=== PATIENT | male | born 1950 | race Caucasian/White ===

== ENCOUNTER 2018-03-17 11:02 | Emergency (ER) | payer BC, OTHER ==
[2018-03-17] MEDS ORDERED: CEFTRIAXONE 250 MG/VIAL ONE (12:07)
[2018-03-17] MEDS ORDERED: LIDOCAINE 1% MPF 2 ML AMPULE ONE (12:07)
[2018-03-17] MEDS ORDERED: AZITHROMYCIN 250 MG TAB ONE (12:07)
[2018-03-17 12:17] LABS: Urine Bacteria <20 /HPF (NONE SEEN); Urine Culture Reflex Order REFLEXED; Urine RBC <5 /HPF (NONE SEEN)
--- NOTE | 2018-03-17 12:41 | EDPHYS ---
Physician Documentation [facility] Name: Gunnar Canada Age: 67 yrs Sex: Male : 1950 Arrival Date: 03/17/2018 Time: 11:08 Bed 25 Private MD: ED Physician Damon Haley HPI: 03/17 12:00 This 67 yrs old Male presents to ER via Ambulatory with complaints of Rash. pm1 12:00 The patient's rash thought to be caused by Had unprotected intercourse about 1 week ago pm1 with a new girlfriend. Noticed a rash to the head of his penis yesterday. Patient is uncircumcised. Denies any burning with urination or penile discharge. The rash is located on the head of penis. The rash can be described as patchy, red. Onset: The symptoms/episode began/occurred yesterday. Associated signs and symptoms: Pertinent negatives: burning sensation, difficulty breathing, fever, swelling of lips, swelling of throat, swelling of tongue. Severity of symptoms: in the emergency department the symptoms are unchanged. The patient has not experienced similar symptoms in the past. The patient has not recently seen a physician. Historical: - Allergies: 11:22 No Known Allergies; aa5 - PMHx: 11:22 Hypertension; aa5 - PSHx: 11:22 None; aa5 - Immunization history:: Flu vaccine is not up to date. - Social history:: Smoking status: Patient/guardian denies using tobacco, the patient reports quitting approximately 10 years ago. - Ebola Screening: : No symptoms or risks identified at this time. ROS: 12:00 Constitutional: Negative for fever, chills, and weight loss, Eyes: Negative for injury, pm1 pain, redness, and discharge, ENT: Negative for injury, pain, and discharge, Neck: Negative for injury, pain, and swelling, Cardiovascular: Negative for chest pain, palpitations, and edema, Respiratory: Negative for shortness of breath, cough, wheezing, and pleuritic chest pain, Abdomen/GI: Negative for abdominal pain, nausea, vomiting, diarrhea, and constipation, Back: Negative for injury and pain, : Negative for injury, bleeding, discharge, and swelling, MS/Extremity: Negative for injury and deformity. 12:00 Neuro: Negative for headache, weakness, numbness, tingling, and seizure. 12:00 Skin: Positive for rash, of the head of penis. Exam: 12:00 Constitutional: This is a well developed, well nourished patient who is awake, alert, pm1 and in no acute distress. Head/Face: Normocephalic, atraumatic. Eyes: Pupils equal round and reactive to light, extra-ocular motions intact. Lids and lashes normal. Conjunctiva and sclera are non-icteric and not injected. Cornea within normal limits. Periorbital areas with no swelling, redness, or edema. ENT: Nares patent. No nasal discharge, no septal abnormalities noted. Tympanic membranes are normal and external auditory canals are clear. Oropharynx with no redness, swelling, or masses, exudates, or evidence of obstruction, uvula midline. Mucous membranes moist. Neck: Trachea midline, no thyromegaly or masses palpated, and no cervical lymphadenopathy. Supple, full range of motion without nuchal rigidity, or vertebral point tenderness. No Meningismus. Chest/axilla: Normal chest wall appearance and motion. Nontender with no deformity. No lesions are appreciated. Cardiovascular: Regular rate and rhythm with a normal S1 and S2. No gallops, murmurs, or rubs. Normal PMI, no JVD. No pulse deficits. Respiratory: Lungs have equal breath sounds bilaterally, clear to auscultation and percussion. No rales, rhonchi or wheezes noted. No increased work of breathing, no retractions or nasal flaring. Abdomen/GI: Soft, non-tender, with normal bowel sounds. No distension or tympany. No guarding or rebound. No evidence of tenderness throughout. Back: No spinal tenderness. No costovertebral tenderness. Full range of motion. Skin: Warm, dry with normal turgor. Normal color with no rashes, no lesions, and no evidence of cellulitis. MS/ Extremity: Pulses equal, no cyanosis. Neurovascular intact. Full, normal range of motion. Neuro: Awake and alert, GCS 15, oriented to person, place, time, and situation. Cranial nerves II-XII grossly intact. Motor strength 5/5 in all extremities. Sensory grossly intact. Cerebellar exam normal. Normal gait. 12:00 : Male external genitalia: penile discharge, is absent, Rash consistent with balanitis . Vital Signs: 11:22 BP 152 / 89; Pulse 71; Resp 18 S; Temp 99.0(TE); Pulse Ox 97% on R/A; Weight 81.19 kg aa5 (R); Height 5 ft. 10 in. (177.80 cm) (R); Pain 0/10; 11:22 Body Mass Index 25.68 (81.19 kg, 177.80 cm) aa5 MDM: 11:26 Patient medically screened. [facility] 11:41 Data reviewed: vital signs. Data interpreted: Pulse oximetry: on room air is 97 %. pm1 Interpretation: normal. 12:39 Counseling: I had a detailed discussion with the patient and/or guardian regarding: the pm1 historical points, exam findings, and any diagnostic results supporting the discharge/admit diagnosis. 03/17 11:40 Order name: Urine Microscopic Only; Complete Time: 12:39 pm1 03/17 11:47 Order name: Urine Dipstick--Ancillary (enter results) ss 03/17 11:40 Order name: Urine Dipstick-Ancillary (obtain specimen); Complete Time: 11:55 pm1 03/17 12:18 Order name: Urine Culture EDKY Administered Medications: 12:03 Drug: Rocephin (cefTRIAXone) 250 mg Route: IM; Site: left deltoid; iw 12:04 Drug: Zithromax 1 grams Route: PO; iw Disposition: 03/18 06:29 Co-signature as Attending Physician, Damon Haley MD I agree with the assessment and [facility] plan of care. Disposition: 03/17/18 12:41 Discharged to Home. Impression: Balanitis. - Condition is Stable. - Discharge Instructions: Balanitis. - Prescriptions for Clotrimazole 1 % Topical Cream - Apply to affected area 1 application by TOPICAL route every 12 hours for 10 days; 15 gram. - Medication Reconciliation Form, Thank You Letter, Antibiotic Education form. - Follow up: Emergency Department; When: As needed; Reason: Worsening of condition. Follow up: Private Physician; When: 2 - 3 days; Reason: Recheck today's complaints, Continuance of care, Re-evaluation by your physician. - Problem is new. - Symptoms have improved. Signatures: Dispatcher [employer] EDMS Damon Haley MD MD cha Williams, Irene RN SHER Humaira Valdes RN RN aa5 [place] PHYSICAL THERAPY SUPERVISOR PHYSICAL THERAPY SUPERVISOR pm1 Corrections: (The following items were deleted from the chart) 03/17 12:57 12:41 03/17/2018 12:41 Discharged to Home. Impression: Balanitis. Condition is Stable. iw Forms are Medication Reconciliation Form, Thank You Letter, Antibiotic Education, Prescription Opioid Use. Follow up: Emergency Department; When: As needed; Reason: Worsening of condition. Follow up: Private Physician; When: 2 - 3 days; Reason: Recheck today's complaints, Continuance of care, Re-evaluation by your physician. Problem is new. Symptoms have improved. pm1
--- NOTE | 2018-03-17 12:41 | ER ---
Nurse's Notes [facility] Name: Gunnar Canada Age: 67 yrs Sex: Male : 1950 Arrival Date: 03/17/2018 Time: 11:08 Bed 25 Private MD: Diagnosis: Balanitis Presentation: 03/17 11:21 Presenting complaint: Patient states: "I have a rash and itching to my private area aa5 that showed up on Saturday". Transition of care: patient was not received from another setting of care. Onset of symptoms was March 2018. Risk Assessment: Do you want to hurt yourself or someone else? Patient reports no desire to harm self or others. Care prior to arrival: None. 11:21 Method Of Arrival: Ambulatory aa5 11:21 Acuity: RENEE 5 aa5 11:22 Initial Sepsis Screen: Does the patient meet any 2 criteria? No. Patient's initial aa5 sepsis screen is negative. Does the patient have a suspected source of infection? No. Patient's initial sepsis screen is negative. Triage Assessment: 12:00 General: Appears in no apparent distress. iw 12:56 General: Behavior is calm. iw Historical: - Allergies: 11:22 No Known Allergies; aa5 - PMHx: 11:22 Hypertension; aa5 - PSHx: 11:22 None; aa5 - Immunization history:: Flu vaccine is not up to date. - Social history:: Smoking status: Patient/guardian denies using tobacco, the patient reports quitting approximately 10 years ago. - Ebola Screening: : No symptoms or risks identified at this time. Screenin:50 Abuse screen: Denies threats or abuse. Denies injuries from another. Nutritional iw screening: No deficits noted. Tuberculosis screening: No symptoms or risk factors identified. Fall Risk None identified. Assessment: 12:00 General: Appears in no apparent distress. comfortable, Behavior is calm, cooperative. iw Pain: Complains of pain in head of penis and shaft of penis. Neuro: Level of Consciousness is awake, alert, obeys commands, Oriented to person, place, time, situation. Cardiovascular: Patient's skin is warm and dry. Respiratory: Respiratory effort is even, unlabored, Respiratory pattern is regular. Derm: Skin is intact, is fragile. Musculoskeletal: Range of motion: intact in all extremities. Vital Signs: 11:22 BP 152 / 89; Pulse 71; Resp 18 S; Temp 99.0(TE); Pulse Ox 97% on R/A; Weight 81.19 kg aa5 (R); Height 5 ft. 10 in. (177.80 cm) (R); Pain 0/10; 11:22 Body Mass Index 25.68 (81.19 kg, 177.80 cm) aa5 ED Course: 11:08 Patient arrived in ED. mr 11:22 Triage completed. aa5 11:22 Arm band placed on. aa5 11:25 [place] NP is PHCP. pm1 11:25 Damon Haley MD is Attending Physician. pm1 11:42 Manda Santiago RN is Primary Nurse. iw 12:00 Patient has correct armband on for positive identification. iw 12:56 No provider procedures requiring assistance completed. Patient did not have IV access iw during this emergency room visit. Administered Medications: 12:03 Drug: Rocephin (cefTRIAXone) 250 mg Route: IM; Site: left deltoid; iw 12:04 Drug: Zithromax 1 grams Route: PO; iw Outcome: 12:41 Discharge ordered by . pm1 12:56 Discharged to home ambulatory. iw 12:56 Condition: good 12:56 Discharge instructions given to patient, Instructed on discharge instructions, follow up and referral plans. medication usage, Demonstrated understanding of instructions, follow-up care, medications, Prescriptions given X 1. 12:57 Patient left the ED. iw Signatures: Bella Meeks mr Manda Santiago RN RN iw Humaira Valdes RN RN aa [place] NP [facility] HAND pm1
[2018-03-17 13:00] LABS: Urine Blood TRACE (NEG); Urine Glucose NEGATIVE (NEG); Urine Protein NEGATIVE (NEG); Urine Specific Gravity 1.025 (1.005-1.030)
[2018-03-17 13:31] VITALS: BP 152/89; TEMP 99; O2SAT 97
== END 2018-03-17 12:57 | disposition home or self-care (01) ==
LOC: ER 11:02
DX: N48.1 Balanitis (principal); I10 Essential (primary) hypertension
CPT/HCPCS: 81003; 81015; 87086; 87088; 96372; 99283; J0696; J2001

== ENCOUNTER 2018-08-07 10:34 | Emergency (ER) | payer BC, OTHER ==
[2018-08-07 12:24] LABS: Absolute Lymphocytes (CBC) 0.5 K/uL (0.7-4.9); Absolute Neutrophil 8.3 K/uL (1.8-8.0); Basophils % 0.2 % (0-1.3); Eosinophils % 0.2 % (0-4.4); Lymphocytes % 5.3 % (15.3-44.8); MPV 7.7 fL (7.6-11.3); Monocytes % 9.9 % (3.3-12.3); RBC Red Blood Cell Count 3.85 M/uL (4.33-5.43)
--- NOTE | 2018-08-07 12:36 | RAD REPORT ---
EXAM DESCRIPTION: RAD - Hand Right 3 View - 08/07/2018 12:22 pm CLINICAL HISTORY: hand swelling COMPARISON: No comparisons FINDINGS: Prominent soft tissue swelling is seen along the dorsum of the hand. Subluxation/dislocati on is suspected at the second metacarpal phalangeal joint. No definitive fracture appreciated. Wideni ng of the scapholunate interval seen in the wrist suggesting tear of the scapholunate ligament.
[2018-08-07 12:44] LABS: Albumin 3.8 g/dL (3.4-5.0); Bilirubin Total 1.3 mg/dL (0.2-1.0); Potassium 4.4 mmol/L (3.5-5.1); Protein, Total 7.7 g/dL (6.4-8.2)
[2018-08-07] MEDS ORDERED: CLINDAMYCIN 900MG/D5W 900 MG/50 ML IVPB IV ONE (13:29)
--- NOTE | 2018-08-07 13:45 | EDPHYS ---
Physician Documentation [facility] Name: Gunnar Canada Age: 67 yrs Sex: Male : 1950 Arrival Date: 08/07/2018 Time: 10:38 Bed 12 Private MD: Urban Delaney ED Physician Randall Willis HPI: 08/07 11:12 This 67 yrs old Male presents to ER via Ambulatory with complaints of Hand jmm Swelling. 11:12 The patient or guardian reports injury, pain, swelling. Onset: The symptoms/episode jmm began/occurred acutely, 3 day(s) ago. Modifying factors: The symptoms are alleviated by nothing, the symptoms are aggravated by nothing. This is a 67 year old male with a history of htn that presents to the ED with complaints of right hand swelling. 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 Patient states swelling began Saturday with swelling to the knuckles. Patients states he scraped his hand in this area. Patient states he is UTD on tetanus immunization. . Historical: - Allergies: 11:03 NSAIDS (Non-Steroidal Anti-Inflamma; hj - PMHx: 11:03 Hypertension; hj - PSHx: 11:03 None; hj - Immunization history:: Adult Immunizations up to date. - Social history:: Smoking status: Patient uses tobacco products, Patient/guardian denies using alcohol. - Ebola Screening: : Patient negative for fever greater than or equal to 101.5 degrees Fahrenheit, and additional compatible Ebola Virus Disease symptoms Patient denies exposure to infectious person Patient denies travel to an Ebola-affected area in the 21 days before illness onset. ROS: 11:12 Constitutional: Negative for fever, chills, and weight loss, Cardiovascular: Negative jmm for chest pain, palpitations, and edema, Respiratory: Negative for shortness of breath, cough, wheezing, and pleuritic chest pain. 11:12 MS/extremity: Positive for erythema, pain, swelling. 11:12 Skin: Positive for erythema. 11:12 All other systems are negative. Exam: 11:12 Constitutional: This is a well developed, well nourished patient who is awake, alert, jmm and in no acute distress. Head/Face: atraumatic. Eyes: EOMI, no conjunctival erythema appreciated ENT: Moist Mucus Membranes Neck: Trachea midline, Supple Chest/axilla: Normal chest wall appearance and motion. Cardiovascular: Regular rate and rhythm. No edema appreciated Respiratory: Normal respirations, no respiratory distress appreciated Abdomen/GI: Non distended, soft 11:12 Skin: erythema noted to the dorsum of the right hand, a healing abrasion is noted to the 2nd mcp region. tenderness on palpation of the base of the 2nd metacarpal. < 2 sec dista cap refill, FROM appreciated. Compartments are soft, NVI. 11:12 Neuro: Orientation: is normal, Mentation: is normal, Memory: is normal. 11:12 Psych: Behavior/mood is pleasant, cooperative. Vital Signs: 11:03 BP 138 / 85; Pulse 83; Resp 18; Temp 98.5(TE); Pulse Ox 98% on R/A; Weight 80.29 kg; hj Height 5 ft. 10 in. (177.80 cm); Pain 7/10; 12:31 BP 141 / 82; Pulse 66; Resp 18; Pulse Ox 98% on R/A; hj 11:03 Body Mass Index 25.40 (80.29 kg, 177.80 cm) MDM: 11:12 Patient medically screened. [facility] 13:41 Data reviewed: vital signs, nurses notes. Counseling: I had a detailed discussion with patricia the patient and/or guardian regarding: the historical points, exam findings, and any diagnostic results supporting the discharge/admit diagnosis, lab results, radiology results, the need for outpatient follow up, to return to the emergency department if symptoms worsen or persist or if there are any questions or concerns that arise at home. ED course: I discussed with the patient the need for close follow up with hand or pcp. Patient given strict return precautions for increased swelling, fever, or increased pain. Patient advised of the high risk of infection. . 08/07 11:13 Order name: CBC with Diff; Complete Time: 12:36 [facility] 08/07 11:13 Order name: CMP; Complete Time: 13:14 [facility] 08/07 11:13 Order name: Hand Right 3 View XRAY; Complete Time: 12:42 [facility] 08/07 11:13 Order name: Procalcitonin; Complete Time: 13:20 [facility] 08/07 11:13 Order name: Lactate; Complete Time: 13:14 [facility] 08/07 13:51 Order name: Hand Right 3 View XRAY; Complete Time: 14:44 [facility] 08/07 11:13 Order name: Saline Lock; Complete Time: 12:07 [facility] Administered Medications: 13:14 Drug: Clindamycin 900 mg Route: IVPB; Infused Over: 30 mins; Site: left antecubital; 13:45 Follow up: IV Status: Completed infusion ss Disposition: 08/08 06:48 Co-signature as Attending Physician, Randall Willis MD I agree with the assessment and kdr plan of care. Disposition: 08/07/18 14:47 Discharged to Home. Impression: Cellulitis of the Right Hand, Dislocation of the Right 2nd Metocarpophalangeal Joint. - Condition is Stable. - Discharge Instructions: Cellulitis, Adult, Intermetacarpal Sprain. - Prescriptions for Clindamycin HCl 300 mg Oral Capsule - take 1 capsule by ORAL route every 6 hours for 10 days; 40 capsule. - Medication Reconciliation Form, Thank You Letter, Antibiotic Education, Prescription Opioid Use, Work release form form. - Follow up: William Bee MD; When: 2 - 3 days; Reason: Recheck today's complaints, Continuance of care, Re-evaluation by your physician. Signatures: Dispatcher [employer] EDSD Randall Willis MD MD [facility] Andrew Cruz PA PA [facility] Maile Reddy RN RN ss Joaquin, Henry, RN RN Corrections: (The following items were deleted from the chart) 08/07 13:50 13:44 08/07/2018 13:44 Discharged to Home. Impression: Cellulitis of the right hand; [facility] 2nd Metacarpophalangeal Dislocation. Condition is Stable. Forms are Medication Reconciliation Form, Thank You Letter, Antibiotic Education, Prescription Opioid Use. Follow up: William Bee; When: 2 - 3 days; Reason: Recheck today's complaints, Continuance of care, Re-evaluation by your physician. [facility] 15:36 14:47 08/07/2018 14:47 Discharged to Home. Impression: Cellulitis of the Right Hand; Dislocation of the Right 2nd Metocarpophalangeal Joint. Condition is Stable. Forms are Medication Reconciliation Form, Thank You Letter, Antibiotic Education, Prescription Opioid Use. Follow up: William Bee; When: 2 - 3 days; Reason: Recheck today's complaints, Continuance of care, Re-evaluation by your physician. edda
--- NOTE | 2018-08-07 13:45 | ER ---
Nurse's Notes [facility] Name: Gunnar Canada Age: 67 yrs Sex: Male : 1950 Arrival Date: 08/07/2018 Time: 10:38 Bed 12 Private MD: Urban Delaney Diagnosis: Cellulitis of the Right Hand;Dislocation of the Right 2nd Metocarpophalangeal Joint Presentation: 08/07 11:02 Presenting complaint: Patient states: Saturday, i messed up my R hand, hit it against hj the fender of [employer]; it looks swollen now;. Transition of care: patient was not received from another setting of care. Onset of symptoms was August 07, 2018. Risk Assessment: Do you want to hurt yourself or someone else? Patient reports no desire to harm self or others. Initial Sepsis Screen: Does the patient meet any 2 criteria? No. Patient's initial sepsis screen is negative. Does the patient have a suspected source of infection? No. Patient's initial sepsis screen is negative. Care prior to arrival: None. 11:02 Method Of Arrival: Ambulatory 11:02 Acuity: RENEE 3 hj Triage Assessment: 12:28 General: Appears in no apparent distress. uncomfortable, Behavior is calm, cooperative, hj appropriate for age. Pain: Complains of pain in right hand. Historical: - Allergies: 11:03 NSAIDS (Non-Steroidal Anti-Inflamma; hj - PMHx: 11:03 Hypertension; hj - PSHx: 11:03 None; hj - Immunization history:: Adult Immunizations up to date. - Social history:: Smoking status: Patient uses tobacco products, Patient/guardian denies using alcohol. - Ebola Screening: : Patient negative for fever greater than or equal to 101.5 degrees Fahrenheit, and additional compatible Ebola Virus Disease symptoms Patient denies exposure to infectious person Patient denies travel to an Ebola-affected area in the 21 days before illness onset. Screenin:27 Abuse screen: Denies threats or abuse. Denies injuries from another. Nutritional hj screening: No deficits noted. Tuberculosis screening: No symptoms or risk factors identified. Fall Risk None identified. Assessment: 12:28 General: Appears in no apparent distress. uncomfortable, Behavior is calm, cooperative, hj appropriate for age. Pain: Complains of pain in right hand. Neuro: Level of Consciousness is awake, alert, obeys commands, Oriented to person, place, time, situation, Appropriate for age. Cardiovascular: Capillary refill < 3 seconds Patient's skin is warm and dry. Respiratory: Airway is patent Respiratory effort is even, unlabored, Respiratory pattern is regular, symmetrical. GI: No signs and/or symptoms were reported involving the gastrointestinal system. : No signs and/or symptoms were reported regarding the genitourinary system. EENT: No signs and/or symptoms were reported regarding the EENT system. Derm: No signs and/or symptoms reported regarding the dermatologic system. Musculoskeletal: Reports pain in right hand. 12:32 Reassessment: Patient and/or family updated on plan of care and expected duration. Pain hj level reassessed. Patient is alert, oriented x 3, equal unlabored respirations, skin warm/dry/pink. awaiting results and POC:. Vital Signs: 11:03 BP 138 / 85; Pulse 83; Resp 18; Temp 98.5(TE); Pulse Ox 98% on R/A; Weight 80.29 kg; hj Height 5 ft. 10 in. (177.80 cm); Pain 7/10; 12:31 BP 141 / 82; Pulse 66; Resp 18; Pulse Ox 98% on R/A; hj 11:03 Body Mass Index 25.40 (80.29 kg, 177.80 cm) ED Course: 10:38 Patient arrived in ED. as 10:38 Urban Delaney MD is Private Physician. as 11:03 Triage completed. hj 11:04 Arm band placed on left wrist. hj 11:08 Andrew Cruz PA is PHCP. [facility] 11:08 Randall Willis MD is Attending Physician. [facility] 12:08 Initial lab(s) drawn, by pa, sent to lab. Inserted saline lock: 22 gauge antecubital kj1 area, using aseptic technique. 12:22 X-ray completed. Portable x-ray completed in exam room. Patient tolerated procedure mh1 well. 12:25 Hand Right 3 View XRAY In Process Unspecified. EDMS 12:27 Rocael Reynolds, SHER is Primary Nurse. hj 12:28 Patient has correct armband on for positive identification. Bed in low position. Call light in reach. Side rails up X 1. Adult w/ patient. 13:42 William Bee MD is Referral Physician. m 14:35 Hand Right 3 View XRAY In Process Unspecified. EDMS 14:46 William Bee MD is Referral Physician. m 15:34 No provider procedures requiring assistance completed. IV discontinued, intact, ss bleeding controlled, No redness/swelling at site. Pressure dressing applied. Administered Medications: 13:14 Drug: Clindamycin 900 mg Route: IVPB; Infused Over: 30 mins; Site: left antecubital; hj 13:45 Follow up: IV Status: Completed infusion ss Outcome: 13:44 Discharge ordered by MD. jmm 14:47 Discharge ordered by . m 15:34 Discharged to home ambulatory. ss 15:34 Condition: good 15:34 Discharge instructions given to patient, Instructed on discharge instructions, follow up and referral plans. medication usage, Demonstrated understanding of instructions, follow-up care, medications, Prescriptions given X 1. 15:36 Patient left the ED. ss Signatures: Dispatcher [employer] EDMS Andrew Cruz PA PA Myra Sheehan mh1 Barbie Dixon Shelby, RN RN Rocael Reynolds RN RN Jeaneth Deleon kj1 Corrections: (The following items were deleted from the chart) 11:05 11:02 Presenting complaint: Patient states: Saturday, i missed my R hand up, hit it hj against the fender of [address]; it looks swollen now; hj 11:05 11:03 Pulse 83bpm; Resp 18bpm; Pulse Ox 98% RA; Temp 98.5F Temporal; 80.29 kg; Height 5 hj ft. 10 in.; BMI: 25.4; Pain 7/10; hj 11:29 11:02 Acuity: RENEE 4 hj hj
--- NOTE | 2018-08-07 14:43 | RAD REPORT ---
EXAM DESCRIPTION: RAD - Hand Right 3 View - 08/07/2018 2:34 pm CLINICAL HISTORY: Subluxation/dislocation at the second MCP joint COMPARISON: Right hand same date FINDINGS: Subluxation/dislocation changes at the second MCP joint have been improved but do not appe ar to be back to full anatomic alignment and position. Underlying MCP and IP joint degenerative changes are present. No acute carpal bone finding. Soft tiss ue swelling is still noted. IMPRESSION: Second proximal phalanx dislocation/subluxation at the MCP joint has been reduced to livia r anatomic alignment. Reduction does not appear to be complete. No fracture identified.
[2018-08-07 15:59] VITALS: TEMP 98.5; O2SAT 98
[2018-08-07 16:00] VITALS: BP 141/82
== END 2018-08-07 15:36 | disposition home or self-care (01) ==
LOC: ER 10:34
DX: L03.113 Cellulitis of right upper limb (principal); S63.260A Dislocation of metacarpophalangeal joint of right index finger, initial encounter; W22.8XXA Striking against or struck by other objects, initial encounter; I10 Essential (primary) hypertension; Z72.0 Tobacco use
CPT/HCPCS: 36415; 80053; 83605; 84145; 85025; 96365; 99284

== ENCOUNTER 2018-12-26 16:11 | Emergency (ER) | payer BC, OTHER ==
[2018-12-26] MEDS ORDERED: MORPHINE 4 MG/ML SYR ONE (16:47)
[2018-12-26] MEDS ORDERED: ONDANSETRON 4 MG/2 ML VIAL ONE (16:47)
[2018-12-26 17:23] LABS: Absolute Lymphocytes (CBC) 0.7 K/uL (0.7-4.9); Basophils % 0.3 % (0-1.3); Hematocrit 36.8 % (39.6-49.0); Lymphocytes % 8.3 % (15.3-44.8); MPV 7.6 fL (7.6-11.3); RBC Red Blood Cell Count 3.71 M/uL (4.33-5.43)
[2018-12-26 17:34] LABS: Protime INR 0.96
[2018-12-26 17:44] LABS: Albumin 3.4 g/dL (3.4-5.0); Bilirubin Direct 0.3 mg/dL (0-0.2); Potassium 4.4 mmol/L (3.5-5.1); Protein, Total 6.9 g/dL (6.4-8.2)
[2018-12-26] MEDS ORDERED: MORPHINE 2 MG/ML SYR ONE (18:15)
--- NOTE | 2018-12-26 18:18 | RAD REPORT ---
EXAM DESCRIPTION: CT - Abdomen Pelvis W Contrast - 12/26/2018 6:08 pm CLINICAL HISTORY: lower abdominal pain COMPARISON: None. TECHNIQUE: Biphasic, helical CT imaging of the abdomen and pelvis was performed following 100 ml non -ionic IV contrast. No oral contrast administered. All CT scans are performed using dose optimization technique as appropriate and may include automated exposure control or mA/KV adjustment according to patient size. FINDINGS: No suspicious findings in the lung bases. The liver, spleen, and pancreas show no suspicious findings. Gallbladder and biliary tree are also wi thout suspicious finding. Right kidney is significantly atrophic. There is right renal function present. Cortical thinning is n oted on the right as well. Left kidney has a lobulated contour. No solid mass or hydronephrosis of ei ther kidney. No pyelonephritis or acute parenchymal process. No bladder abnormalities. No adrenal abn ormalities. Stomach is not dilated. Fluid is retained within the stomach. Wall thickening and edema are present i n the gastric antrum, duodenal bulb and duodenal C-loop. Distal duodenum is decompressed. Remainder o f the small bowel is decompressed. No colon dilatation. Sigmoid colon is redundant. Hyperdense materi al is present in the sigmoid colon and rectum without other evidence for small bowel or stomach contr ast. This may be ingested medication or contrast from a prior study. No free air, free fluid or inflammatory stranding. No mass or bulky lymphadenopathy. Fat filled rig ht inguinal hernia present. Disc and bony degenerative changes are present. No acute or pathologic process. IMPRESSION: Moderately prominent gastric antritis and proximal duodenitis pattern. No perforation pr esent or focal ulceration identified. No acute small bowel or colon finding. Nonacute findings detailed in the body of the report.
[2018-12-26] MEDS ORDERED: NA CHLORIDE 0.9% 500 ML ONE (18:47)
[2018-12-26] MEDS ORDERED: PANTOPRAZOLE 40 MG INJ ONE (18:47)
[2018-12-26] MEDS ORDERED: MAGNE/ALUM HYDROXD 30 ML UCUP ONE (19:21)
[2018-12-26] MEDS ORDERED: LIDOCAINE VISCOUS 2% SOLN 15 ML UDC ONE (19:22)
--- NOTE | 2018-12-26 19:37 | ER ---
Nurse's Notes [facility] Name: Gunnar Canada Age: 68 yrs Sex: Male : 1950 Arrival Date: 12/26/2018 Time: 16:15 Bed 20 Private MD: Diagnosis: Upper GI Bleed;Gastritis Presentation: 12/26 16:30 Presenting complaint: Patient states: "I ran out of my pain pills and I took some aj1 naproxen and it started making my belly hurt a few days ago and then at 2:00 I noticed that it was making my stools dark" Reports pain to lower abdomen. Denies N/V/D. Denies fever. Transition of care: patient was not received from another setting of care. Onset of symptoms was December 26, 2018 at 14:00. Risk Assessment: Do you want to hurt yourself or someone else? Patient reports no desire to harm self or others. Initial Sepsis Screen: Does the patient meet any 2 criteria? HR > 90 bpm. No. Patient's initial sepsis screen is negative. Does the patient have a suspected source of infection? Yes: Acute abdominal pain. Care prior to arrival: None. 16:30 Method Of Arrival: Ambulatory aj1 16:30 Acuity: RENEE 3 aj1 Triage Assessment: 16:33 General: Appears in no apparent distress. uncomfortable, Behavior is calm, cooperative, aj1 appropriate for age. Pain: Pain currently is 8 out of 10 on a pain scale. Neuro: Level of Consciousness is awake, alert, obeys commands. Cardiovascular: Patient's skin is warm and dry. Respiratory: Airway is patent Respiratory effort is even, unlabored, Respiratory pattern is regular, symmetrical. GI: Reports lower abdominal pain. Historical: - Allergies: 16:33 NKDA; aj1 - Home Meds: 16:33 allopurinol 100 mg Oral tab 1 tab once daily [Active]; amlodipine 5 mg tab 1 tab once aj1 daily [Active]; carvedilol 12.5 mg oral tab 1 tab 2 times per day [Active]; Leo 7.5-325 mg Oral tab 1 tab twice daily [Active]; - PMHx: 16:33 Hypertension; Gout; chronic shoulder pain; aj1 - Immunization history:: Flu vaccine is not up to date. - Social history:: Smoking status: Patient/guardian denies using tobacco. - Ebola Screening: : Patient denies travel to an Ebola-affected area in the 21 days before illness onset. Screenin:07 Abuse screen: Denies threats or abuse. Denies injuries from another. Nutritional hb screening: No deficits noted. Tuberculosis screening: No symptoms or risk factors identified. Fall Risk None identified. Assessment: 17:02 General: Appears in no apparent distress. Behavior is calm, cooperative. Pain: Pain hb currently is 10 out of 10 on a pain scale. Neuro: Level of Consciousness is awake, alert, obeys commands, Oriented to person, place, time, situation. Cardiovascular: Patient's skin is warm and dry. Respiratory: Airway is patent Respiratory effort is even, unlabored, Respiratory pattern is regular, symmetrical, Breath sounds are clear bilaterally. GI: Abdomen is non-distended, Bowel sounds present X 4 quads. Abd is soft X 4 quads Abdomen is tender to palpation RLQ, LLQ. : No signs and/or symptoms were reported regarding the genitourinary system. EENT: No signs and/or symptoms were reported regarding the EENT system. Derm: Skin is intact, is healthy with good turgor, Skin is pale, ashen. Musculoskeletal: No signs and/or symptoms reported regarding the musculoskeletal system. 18:15 Reassessment: Patient appears in no apparent distress at this time. Patient and/or family updated on plan of care and expected duration. Pain level reassessed. Patient is alert, oriented x 3, equal unlabored respirations, skin warm/dry/pink. 18:50 Reassessment: ZOILA Morales at bedside discussing plan of care with pt and pt's son. [facility] 19:00 Reassessment: Reassessment: Irregular pulse palpated, ERP notified and ordered for EKG. [facility] 19:28 Reassessment: Patient appears in no apparent distress at this time. Patient and/or family updated on plan of care and expected duration. Pain level reassessed. Patient is alert, oriented x 3, equal unlabored respirations, skin warm/dry/pink. 19:55 Reassessment: Report given to Ted Llanes RN. 20:33 Reassessment: Patient appears in no apparent distress at this time. No changes from previously documented assessment. Patient and/or family updated on plan of care and expected duration. Pain level reassessed. Patient is alert, oriented x 3, equal unlabored respirations, skin warm/dry/pink. Patient denies pain at this time. Patient states feeling better. Patient states symptoms have improved. Report given to [facility]. Vital Signs: 16:33 BP 117 / 86; Pulse 102; Resp 20; Temp 97.7; Pulse Ox 99% on R/A; Weight 72.57 kg (R); aj1 Height 5 ft. 10 in. (177.80 cm) (R); Pain 8/10; 17:45 BP 128 / 86; Pulse 73; Resp 15; Pulse Ox 100% on R/A; hb 18:40 BP 130 / 86; Pulse 107; Resp 16 S; Pulse Ox 100% on R/A; jl7 19:28 BP 149 / 87; Pulse 101; Resp 18; Pulse Ox 98% on R/A; wh 20:15 BP 143 / 73; Pulse 88; Resp 18; Pulse Ox 100% on R/A; wh 16:33 Body Mass Index 22.96 (72.57 kg, 177.80 cm) [facility] ED Course: 16:15 Patient arrived in ED. mr 16:31 Triage completed. aj1 16:33 Arm band placed on Patient placed in an exam room. [facility] 16:35 Andrew Cruz PA is PHCP. [facility] 16:35 Elpidio Spencer MD is Attending Physician. [facility] 16:44 Kira Do, SHER is Primary Nurse. hb 16:46 Radiology exam delayed due to lab results not completed at this time. (BUN/Creatinine). 2 16:52 Inserted saline lock: 20 gauge in right antecubital area, using aseptic technique. hb Blood collected. 17:07 Patient has correct armband on for positive identification. Bed in low position. Call hb light in reach. Side rails up X 1. 17:43 Radiology exam delayed due to lab results not completed at this time. (BUN/Creatinine). vm2 17:[address] 2 18:11 CT Abd/Pelvis - IV Contrast Only In Process Unspecified. EDMS 20:34 No provider procedures requiring assistance completed. Patient transferred, IV remains wh in place. Administered Medications: 17:09 Drug: morphine 4 mg Route: IVP; Site: right antecubital; hb 17:30 Follow up: Response: No adverse reaction hb 17:09 Drug: Zofran 4 mg Route: IVP; Site: right antecubital; hb 17:30 Follow up: Response: No adverse reaction hb 18:15 Drug: morphine 2 mg Route: IVP; Site: right antecubital; hb 20:35 Follow up: Response: No adverse reaction; RASS: Alert and Calm (0) 18:53 Drug: NS 0.9% 500 ml Route: IV; Rate: bolus; Site: right antecubital; jl7 20:35 Follow up: Response: No adverse reaction; IV Status: Completed infusion 18:53 Drug: ProTONIX 40 mg Route: IVP; Site: right antecubital; jl7 20:35 Follow up: Response: No adverse reaction 19:25 Drug: GI Cocktail without - (Maalox Suspension 30 ml, Lidocaine Liquid 2 % 15 wh ml) Route: PO; 20:35 Follow up: Response: No adverse reaction; Pain is decreased Outcome: 19:35 ER care complete, transfer ordered by MD. bañuelos 20:34 Transferred by ground EMS to [facility], Transfer form completed. X-rays sent w/ patient. 20:34 Condition: good 20:34 Instructed on the need for transfer. 20:36 Patient left the ED. Signatures: Dispatcher [employer] EDMS Lalita Barrett RN RN aj1 Andrew Cruz PA PA jmm Rivera, Mary mr Kira Do RN RN hb Leal, Jahala, RN RN jl7 Regina Ma [facility] Corrections: (The following items were deleted from the chart) 20:36 20:33 Reassessment: Patient appears in no apparent distress at this time. No changes wh from previously documented assessment. Patient and/or family updated on plan of care and expected duration. Pain level reassessed. Patient is alert, oriented x 3, equal unlabored respirations, skin warm/dry/pink. Patient denies pain at this time. Patient states feeling better. Patient states symptoms have improved.
--- NOTE | 2018-12-26 19:38 | EDPHYS ---
Physician Documentation [facility] Name: Gunnar Canada Age: 68 yrs Sex: Male : 1950 Arrival Date: 12/26/2018 Time: 16:15 Bed 20 Private MD: ED Physician Elpidio Spencer HPI: 12/26 16:39 This 68 yrs old Male presents to ER via Ambulatory with complaints of jmm Abdominal Pain. 16:39 The patient presents with abdominal pain in the lower abdomen. Onset: The jmm symptoms/episode began/occurred today. The symptoms do not radiate. Associated signs and symptoms: Pertinent positives: blood in stools. This is a 68 year old male with a history of htn that presents to the ED with complaints of lower abdominal pain with dark stools beginning earlier today. Patient states 2 days ago he began taking nsaids for chronic shoulder pain. Denies vomiting. . Historical: - Allergies: 16:33 NKDA; aj1 - Home Meds: 16:33 allopurinol 100 mg Oral tab 1 tab once daily [Active]; amlodipine 5 mg tab 1 tab once aj1 daily [Active]; carvedilol 12.5 mg oral tab 1 tab 2 times per day [Active]; [place] 7.5-325 mg Oral tab 1 tab twice daily [Active]; - PMHx: 16:33 Hypertension; Gout; chronic shoulder pain; aj1 - Immunization history:: Flu vaccine is not up to date. - Social history:: Smoking status: Patient/guardian denies using tobacco. - Ebola Screening: : Patient denies travel to an Ebola-affected area in the 21 days before illness onset. ROS: 16:39 Constitutional: Negative for fever, chills, and weight loss, Cardiovascular: Negative jmm for chest pain, palpitations, and edema, Respiratory: Negative for shortness of breath, cough, wheezing, and pleuritic chest pain. 16:39 Abdomen/GI: Positive for abdominal pain, black/tarry stool. 16:39 All other systems are negative. Exam: 16:39 Head/Face: atraumatic. Eyes: EOMI, no conjunctival erythema appreciated ENT: Moist jmm Mucus Membranes Neck: Trachea midline, Supple Chest/axilla: Normal chest wall appearance and motion. Cardiovascular: Regular rate and rhythm. No edema appreciated Respiratory: Normal respirations, no respiratory distress appreciated 16:39 Constitutional: The patient appears alert, awake, uncomfortable. 16:39 Abdomen/GI: Inspection: abdomen appears normal, Bowel sounds: normal, Palpation: soft, moderate abdominal tenderness, in the right lower quadrant and left lower quadrant. 16:39 Musculoskeletal/extremity: ROM: intact in all extremities. 16:39 Skin: Appearance: Color: normal in color. 16:39 Neuro: Orientation: is normal, Mentation: is normal, Memory: is normal. 16:39 Psych: Behavior/mood is pleasant, cooperative. Vital Signs: 16:33 BP 117 / 86; Pulse 102; Resp 20; Temp 97.7; Pulse Ox 99% on R/A; Weight 72.57 kg (R); aj1 Height 5 ft. 10 in. (177.80 cm) (R); Pain 8/10; 17:45 BP 128 / 86; Pulse 73; Resp 15; Pulse Ox 100% on R/A; hb 18:40 BP 130 / 86; Pulse 107; Resp 16 S; Pulse Ox 100% on R/A; jl7 19:28 BP 149 / 87; Pulse 101; Resp 18; Pulse Ox 98% on R/A; wh 20:15 BP 143 / 73; Pulse 88; Resp 18; Pulse Ox 100% on R/A; wh 16:33 Body Mass Index 22.96 (72.57 kg, 177.80 cm) aj1 MDM: 16:39 Patient medically screened. [facility] 19:29 Data reviewed: vital signs, nurses notes. ED course: I discussed the patient with Dr. edda Michaels whom accepted admission. I discussed the patient with Dr. Martinez whom will consult on transfer. . 12/26 16:43 Order name: Basic Metabolic Panel; Complete Time: 17:53 [facility] 12/26 16:43 Order name: CBC with Diff; Complete Time: 18:12 [facility] 12/26 16:43 Order name: Creatinine for Radiology; Complete Time: 17:43 [facility] 12/26 16:43 Order name: Hepatic Function; Complete Time: 17:53 [facility] 12/26 16:43 Order name: Lipase; Complete Time: 17:53 [facility] 12/26 16:43 Order name: Type And Screen; Complete Time: 18:38 [facility] 12/26 16:43 Order name: CT Abd/Pelvis - IV Contrast Only; Complete Time: 18:43 [facility] 12/26 16:43 Order name: PT-INR; Complete Time: 18:12 [facility] 12/26 17:53 Order name: Guiac; Complete Time: 18:12 12/26 16:43 Order name: IV Saline Lock; Complete Time: 17:09 [facility] 12/26 16:43 Order name: Labs collected and sent; Complete Time: 17:09 [facility] Administered Medications: 17:09 Drug: morphine 4 mg Route: IVP; Site: right antecubital; hb 17:30 Follow up: Response: No adverse reaction hb 17:09 Drug: Zofran 4 mg Route: IVP; Site: right antecubital; hb 17:30 Follow up: Response: No adverse reaction hb 18:15 Drug: morphine 2 mg Route: IVP; Site: right antecubital; hb 20:35 Follow up: Response: No adverse reaction; RASS: Alert and Calm (0) 18:53 Drug: NS 0.9% 500 ml Route: IV; Rate: bolus; Site: right antecubital; jl7 20:35 Follow up: Response: No adverse reaction; IV Status: Completed infusion 18:53 Drug: ProTONIX 40 mg Route: IVP; Site: right antecubital; jl7 20:35 Follow up: Response: No adverse reaction 19:25 Drug: GI Cocktail without - (Maalox Suspension 30 ml, Lidocaine Liquid 2 % 15 wh ml) Route: PO; 20:35 Follow up: Response: No adverse reaction; Pain is decreased Disposition: 12/26/18 19:35 Transfer ordered to [facility]. Diagnosis are Upper GI Bleed, Gastritis. - Reason for transfer: Higher level of care. - Accepting physician is Brando. - Condition is Stable. - Problem is new. - Symptoms are unchanged. Addendum: 12/29/2018 07:00 Co-signature as Attending Physician, Elpidio Spencer MD. r n Signatures: Dispatcher [employer] Lalita Sher RN RN aj1 Andrew Cruz PA PA jmm Nieto, Roman, MD MD rn Baxter, Heather RN RN Wilmer Sheppard RN RN jl7 [facility]am Corrections: (The following items were deleted from the chart) 12/26 20:36 19:35 12/26/2018 19:35 Transfer ordered to [facility]. Diagnosis is wh Upper GI Bleed; Gastritis. Reason for transfer: Higher level of care. Accepting physician is Brando. Condition is Stable. Problem is new. Symptoms are unchanged. edda
[2018-12-26 20:42] VITALS: TEMP 97.7
[2018-12-26 20:47] VITALS: BP 143/73; O2SAT 100
--- NOTE | 2018-12-27 15:37 | EKG ---
Test Date: 2018-12-26 Test Time: 19:09:36 Shank Sander: DILCIA MEASUREMENT RESULTS: Intervals: Rate: 104 [place]: QRSD: 84 QT: 362 QTc: 476 [place]: P: [place]: QRS: 49 T: 66 INTERPRETIVE STATEMENTS: sinus rhythm with frequent premature atrial comlexes Abnormal ECG Compared to ECG 10/26/2011 15:47:13 PACs are now present Electronically Signed On 12-27-18 15:36:22 CDT by Robb Bradley
== END 2018-12-26 20:36 | disposition short-term general hospital (02) ==
LOC: ER 16:11
DX: K92.2 Gastrointestinal hemorrhage, unspecified (principal); K29.70 Gastritis, unspecified, without bleeding; I10 Essential (primary) hypertension; M10.9 Gout, unspecified
CPT/HCPCS: 96361; 93005; 85025; 80048; 36415; 86900; 86850; 85610; 86901; 80076; 82272; 83690; 74177; 96375; 96374; 99285; Q9967; C9113; J2270; J2405